=== PATIENT | male | born 1965 | race Caucasian/White ===

== ENCOUNTER 2017-08-14 15:53 | Emergency (ER) | payer OTHER ==
[2017-08-14] MEDS ORDERED: Lidocaine 1% with EPINEPHrine 1:100,000 20 ML MDV ONE (16:20)
--- NOTE | 2017-08-14 16:30 | EDM.PDOC ---
ED HPI GENERAL MEDICAL PROBLEM - General Chief Complaint: General Stated Complaint: FISH HOOK Time Seen by Provider: 08/14/17 16:05 Source of Information: Reports: Patient History Limitations: Reports: No Limitations - History of Present Illness INITIAL COMMENTS - FREE TEXT/NARRATIVE: 52 year old man who has gotten a fish hook in the end of his left index finger. He needs to have it taken out. Onset: Today Onset Date: 08/14/17 Onset Time: 15:15 Duration: Hour(s): (1) Location: Reports: Upper Extremity, Left (Fish hook in left index finger.) Quality: Reports: Sharp Severity: Mild Improves with: Reports: None Worsens with: Reports: Movement Context: Reports: Other (Ice fishing today.) Associated Symptoms: Reports: No Other Symptoms ED ROS GENERAL - Review of Systems Review Of Systems: ROS reveals no pertinent complaints other than HPI. ED EXAM, GENERAL - Physical Exam Exam: See Below Exam Limited By: No Limitations General Appearance: Alert, WD/WN, No Apparent Distress Head: Atraumatic, Normocephalic Neck: Normal Inspection, Supple, Non-Tender, Full Range of Motion Respiratory/Chest: No Respiratory Distress, Lungs Clear, Normal Breath Sounds, No Accessory Muscle Use, Chest Non-Tender Cardiovascular: Normal Peripheral Pulses, Regular Rate, Rhythm, No Edema, No Gallop, No JVD, No Murmur, No Rub Extremities: Other (Small treble fish hook in end of left index finger.) Neurological: Alert, Oriented, CN II-XII Intact, Normal Cognition, Normal Gait, Normal Reflexes, No Motor/Sensory Deficits Psychiatric: Normal Affect, Normal Mood Skin Exam: Warm Lymphatic: No Adenopathy ED GENERAL MEDICAL PROCEDURES - Additional/Other Procedure(s) Other (Free Text) Procedure(s): After sterile prep x 3 with Betadine, I instilled 2 ml of plain 1% lidocaine around the fish hook. I then used a suture viveros to grab hold of the hook and was able to remove it from the finger. The finger was cleaned and bandaged with antibiotic ointment. Course - Vital Signs Text/Narrative:: Uneventful ED course. He did not need a tetanus shot since he had gotten one 2 years ago. He will bandage daily with antibiotic ointment for the next few days and will go to his PCP in [place] if any infection or other problems occurs. Departure - Departure Time of Disposition: 16:31 Disposition: Home, Self-Care 01 Condition: Good Clinical Impression: Fish hook injury of finger of left hand - Discharge Information
== END 2017-08-14 16:25 | disposition home or self-care (01) ==
LOC: LB.ED 15:53
DX: S60.451A Superficial foreign body of left index finger, initial encounter (principal); W45.8XXA Other foreign body or object entering through skin, initial encounter
CPT/HCPCS: 99283